=== PATIENT | female | born 1950 | race Caucasian/White ===

== ENCOUNTER → 2016-12-09 | Outpatient (CLI) | payer MEDICARE, OTHER ==
[~2016-12-09] MED LIST: ACETAMINOPHEN PO; ALBUTEROL17 GM INH; ALENDRONATE SOD70 MG PO; ALLEGRA180 MG PO; AMOXICILLIN PO; ANTACID420 MG PO; ASPIRIN PO; ATARAX PO; ATROVASTATIN PO; AUGMENTIN PO; AZITHROMYCIN1 GM PO; AZITHROMYCIN250 MG PO; AZULFIDINE PO; AZULFIDINE500 M1 PO; BENZONATATE PO; CIPRO PO; CLARITIN10 M2 PO; CLARITIN10 MG PO; COMBIVENT U/D3 M2 INH; DEPAKOTE PO; DEXILANT60 MG PO; DIVALPROEX SOD500 M1 PO; DIVALPROEX SOD500 MG PO; DOK100 M1 PO; FLAGYL PO; FLONASE16 GM; FOLIC ACID PO; FOLIC ACID-B12/1 TAB PO; FOLIC ACID1 MG PO; FOSAMAX70 MG PO; HCTZ PO; HYDRALAZINE HCL25 MG PO; HYDROCHLOROTH12.5 MG PO; HYDROCODON-ACE1 EAC9 PO; HYDROCODONE-APA1 T30 PO; HYDROXYZINE HCL50 MG PO; KEFLEX500 MG PO; LANSOPRAZOLE30 M2 PO; LANSOPRAZOLE30 MG PO; LEVAQUIN PO; LEVAQUIN750 MG PO; LIPITOR PO; LIPITOR80 MG PO; LISINOPRIL PO; LISINOPRIL20 MG PO; MEDROL DOSEPAK4 MG PO; METAMUCIL; METAMUCIL1 PKT PO; MOBIC15 MG PO; NABUMETONE PO; NAPROXEN PO; NORVASC10 MG PO; OXYGEN; OYSTER SHELL C1 EAC1 PO; PATIENT'S PHARMACY; PHARMACY; PHENERGAN PO; PHENERGAN25 M1 PO; PHENERGAN25 MG PO; PREVACID PO; PROPANOLOL PO; PROPRANOLOL PO; ROBITUSSIN A-C S5 ML PO; ROPINIROLE HC0.25 MG PO; STOOL SOFTNER; SULFASALAZINE500 M1 PO; SULFASALAZINE500 M2 PO; SYMBICORT INH; TAMIFLU75 M1 PO; TYLENOL #3 PO; ULTRAM PO; VIACTIV TA1 TAB.CHE1 PO; VICODIN 5/500 T1 TAB PO; VICODIN PO; VIT B12 PO; VIT D2 PO; VITAMIN D350000 UNIT PO; ZOLPIDEM TARTRAT5 M1 PO
--- NOTE | ~2016-12-09 | CT57 ---
[facility] A Service of [facility] RADIOLOGY TEXT RESULTS PATIENT: JOSÉ MIGUEL DEAN LOCATION: [facility] : 50 UNIT #: [id number] AGE: [address]: Elaine Montalvo SEX: F ORDER DR: [id number] [facility]. [place], [place] [address] [id number] O MR#: [id number] Acc #: [id number] NAME: JOSÉ MIGUEL DEAN. : 1950 SEX: F STUDY DATE/TIME: 12/09/2016 7:34 UNIT: [facility] ROOM: STUDY DESCRIPTION: CT Chest Wo Cont Attending Physician: Elaine Montalvo A.P.R.N. Referring Physician: Elaine Montalvo A.P.R.N. Ordering Physician: Elaine Montalvo A.P.R.N. Primary Care Physician: Primary Care Physician No MEDICAL IMAGING REPORT This report is preliminary unless electronic signature is present EXAM CT chest without contrast INDICATION Cough since August 2016. PROCEDURE Unenhanced CT of the chest performed using high-resolution protocol. This CT exam was performed with one or more of the following radiation dose reduction techniques: automatic exposure control, adjustment of mA and/or kV according to patient size, and iterative reconstruction. COMPARISON 07/24/2015 FINDINGS There are new linear areas of scarring or atelectasis in the lower lobes. There is no new dense consolidation. No pleural fluid or pneumothorax. No suspicious pulmonary nodule. No evidence for significant fibrosis. No bronchiectasis or significant air trapping. No adenopathy. No acute findings in the included upper abdomen. Small hiatal hernia with persistent thickening in the distal esophagus. No aggressive appearing bone lesion. IMPRESSION 1. No acute findings. 2. Linear scarring or atelectasis in the lower lobes. 3. No evidence for appreciable fibrosis. Dictated by... James Mensah M.D. [facility] A Service [facility] RADIOLOGY TEXT RESULTS PATIENT: JOSÉ MIGUEL DEAN LOCATION: [facility] : 50 UNIT #: [id number] AGE: [address]: Elaine Montalvo SEX: F ORDER DR: THIS IS AN ELECTRONICALLY VERIFIED REPORT James Mensah M.D. at 12/11/2016 7:06 AM Bandar TD: 12/10/2016 08:11 JOB #: [id number] MEDICAL IMAGING REPORT Page 1 of 1 COPY
== END | disposition home or self-care (01) ==
LOC: CCAT 06:54
DX: J18.9 Pneumonia, unspecified organism (principal); R05 Cough; R91.8 Other nonspecific abnormal finding of lung field
CPT/HCPCS: 71250

== ENCOUNTER 2016-12-16 10:43 | Emergency (ER) | payer MEDICARE, OTHER ==
--- NOTE | ~2016-12-16 | CT2 ---
[facility] A Service of [facility] RADIOLOGY TEXT RESULTS PATIENT: JOSÉ MIGUEL DEAN LOCATION: [facility] : 50 UNIT #: [id number] AGE: [address]: Chetna Pompa MD SEX: F ORDER DR: [id number] [facility] [address] [facility] [place], [place] [address] [id number] E MR#: [id number] Acc #: [id number] NAME: JOSÉ MIGUEL DEAN. : 1950 SEX: F STUDY DATE/TIME: 12/16/2016 13:31 UNIT: [facility] ROOM: STUDY DESCRIPTION: CT Abd and Pelv W Cont Attending Physician: Chetna Pompa M.D. Ordering Physician: Chetna Pompa M.D. Primary Care Physician: Naveen Alejandra MEDICAL IMAGING REPORT This report is preliminary unless electronic signature is present EXAM CT of the abdomen and pelvis with IV contrast media HISTORY Right lower quadrant pain and right-sided back pain since December 15, 2016. TECHNIQUE Axial imaging of the abdomen and pelvis was performed with IV contrast media. This CT exam was performed with one or more of the following radiation dose reduction techniques: automatic exposure control, adjustment of mA and/or kV according to patient size, and iterative reconstruction. FINDINGS Scans of lung bases show some linear scarring in the right base. There is scoliosis with advanced secondary degenerative changes throughout the thoracolumbar spine. Scans through the liver are normal. The gallbladder is absent. Common duct is upper limits of normal for this patient post cholecystectomy. There is a small hiatal hernia. The spleen is of normal size. The adrenal glands are normal. Pancreas is normal. There is cortical thinning in both kidneys. Incidental small cyst is seen on the left. No dilated or thickened loops of bowel are identified in the upper abdomen. Appendix is not identified. The uterus is absent. There are no pelvic masses or fluid collections. CONCLUSION 1. Postop changes of hysterectomy and cholecystectomy and I suspect appendectomy. 2. Mild scarring in the kidneys. No focal abnormalities. No evidence of hydronephrosis. 3. Scoliosis with associated secondary degenerative changes. No acute findings. STS. [facility] A Service of [facility] RADIOLOGY TEXT RESULTS PATIENT: JOSÉ MIGUEL DEAN LOCATION: [facility] #: [id number] : 50 UNIT #: [id number] AGE: [address]: Chetna Pompa MD SEX: F ORDER DR: Dictated by... Musa Walters M.D. THIS IS AN ELECTRONICALLY VERIFIED REPORT Musa Walters M.D. at 12/18/2016 4:42 PM Daisy TD: 12/16/2016 16:09 JOB #: [id number] MEDICAL IMAGING REPORT Page 1 of 1 COPY
[2016-12-16 12:01] LABS: URINE SOURCE CLEAN CATCH
[2016-12-16 12:06] LABS: URINE APPEARANCE CLEAR; URINE BILIRUBIN NEG (NEG); URINE BLOOD NEG (NEG); URINE COLOR YELLOW; URINE GLUCOSE NEG (NEG); URINE KETONE NEG (NEG); URINE LEUKOCYTE ESTERASE NEG (NEG); URINE NITRATE NEG (NEG); URINE PH 7.5 (5-8); URINE PROTEIN NEG (NEG); URINE SPECIFIC GRAVITY 1.004 (1.003-1.035); URINE UROBILINOGEN 0.2 MG/DL (NEG)
[2016-12-16 12:09] LABS: CULTURE INDICATED? NO
[2016-12-16 12:37] LABS: BASOPHIL# 0.1 X10e3 (0-0.3); BASOPHIL% 1.1 % (0-2.5); DIFF IND NO; EOSINOPHIL# 0.3 X10e3 (0-0.7); EOSINOPHIL% 2.5 % (0.0-7.0); HEMATOCRIT 39.3 % (35.0-45.0); HEMOGLOBIN 12.8 gm/dL (12.0-16.0); LYMPHOCYTE% 7.3 % (17.0-45.0); MEAN CELL VOLUME 90.7 FL (83-96); MEAN CORPUSCULAR HEMOGLOBIN 29.4 PG (28-34); MEAN CORPUSCULAR HGB CONC 32.5 g/dL (30-36); MEAN PLATELET VOLUME 8.6 FL (6.5-11.5); MONOCYTE# 0.8 X10e3 (0-1.0); MONOCYTE% 6.2 % (3.0-12.0); NEUTROPHIL# 11.3 X10e3 (1.5-7.1); NEUTROPHIL% 82.9 % (40-75); PLATELET COUNT 223 X10e3 (140-420); RED BLOOD COUNT 4.33 X10e (3.90-5.30); RED CELL DISTRIBUTION WIDTH 21.4 % (11.0-15.5); WHITE BLOOD COUNT 13.6 X10e3 (4.0-10.5)
[2016-12-16 13:09] LABS: ALBUMIN SERUM 3.6 g/dL (3.5-5.0); BILIRUBIN, DIRECT 0.2 mg/dL (0.0-0.2); BILIRUBIN,INDIRECT 0.2 mg/dL (0.0-0.9); BILIRUBIN,TOTAL 0.4 mg/dL (0.2-2.0); BUN/CREATININE RATIO 17.77; CREATININE SERUM 0.9 mg/dL (0.6-1.4); GLOM FILT RATE Estimated 66.7 mL/min (>60); POTASSIUM 3.8 mmol/L (3.5-5.1); PROTEIN TOTAL SERUM 6.7 g/dL (6.0-8.3)
== END 2016-12-16 15:33 | disposition home or self-care (01) ==
LOC: CED 10:43
PROVIDERS: Emergency Medicine
DX: M54.5 Low back pain (principal); I10 Essential (primary) hypertension; K21.9 Gastro-esophageal reflux disease without esophagitis; J45.909 Unspecified asthma, uncomplicated; Z90.710 Acquired absence of both cervix and uterus; Z79.899 Other long term (current) drug therapy
CPT/HCPCS: 36415; 74177; 80048; 80076; 81003; 85025; 96374; 99284; J2270; Q9967